=== PATIENT | female | born 1950 | race American Indian/Alaskan Native ===

== ENCOUNTER 2022-01-01 09:37 | Emergency (ER) | payer OTHER ==
--- NOTE | 2022-01-01 13:57 | XRay Report ---
RIGHT KNEE 2 VIEW(S) INDICATION / CLINICAL INFORMATION: fall COMPARISON: None available. FINDINGS: BONES / JOINT(S): No acute fracture or subluxation. No significant arthritis. SOFT TISSUES: No significant abnormality. ADDITIONAL FINDINGS: None. Signer Name: Jamarcus Avina DO Signed: 01/01/2022 1:53 PM Workstation Name: [email or web address]
[2022-01-01] MEDS ORDERED: KETOROLAC 30 MG/1 ML INJ IM ONE (14:18)
--- NOTE | 2022-01-01 14:18 | Emergency Department Report ---
ED Extremity Problem HPI - General Chief complaint: Extremity Injury, Lower Stated complaint: RT LOW LEG PAIN FALL Source: patient, EMS Mode of arrival: Stretcher Limitations: Language Barrier - History of Present Illness Initial comments: 71-year-old female presents to the ED complaining of right shoulder ,right leg and right knee pain x4-hour. She states that she was working at [employer] when she was slipped and fell over a pallet. She is able to ambulate without difficulty. Patient has no obvious deformity. no distracting injury. no edema noted. Patient is able to move all extremity without difficulty. Patient states pain to her right knee is a 8 out of 10. Patient is alert and oriented x3. No acute distress noted. No ill appearance noted. MD Complaint: extremity pain -: This morning Location: right History of Same: No Severity scale (0 -10): 8 Quality: aching Consistency: constant Improves with: nothing - Related Data Previous Rx's Medication Instructions Recorded Last Taken Type Cyclobenzaprine HCl [Flexeril 5 MG 5 mg PO TID 15 Days #30 tab 01/01/22 Unknown Rx TAB] Meloxicam [Mobic] 7.5 mg PO QDAY 15 Days #30 tablet 01/01/22 Unknown Rx Allergies Allergy/AdvReac Type Severity Reaction Status Date / Time No Known Allergies Allergy Verified 01/01/22 09:42 ED Review of Systems ROS: Stated complaint: RT LOW LEG PAIN FALL Other details as noted in HPI Constitutional: denies: chills, fever Eyes: denies: eye pain, eye discharge, vision change ENT: denies: ear pain, throat pain Respiratory: denies: cough, shortness of breath, wheezing Cardiovascular: denies: chest pain, palpitations Endocrine: no symptoms reported Gastrointestinal: denies: abdominal pain, nausea, diarrhea Genitourinary: denies: urgency, dysuria, discharge Musculoskeletal: arthralgia. denies: back pain, joint swelling Skin: denies: rash, lesions Neurological: denies: headache, weakness, paresthesias Psychiatric: denies: anxiety, depression Hematological/Lymphatic: denies: easy bleeding, easy bruising ED Past Medical Hx - Medications Home Medications: Home Medications Medication Instructions Recorded Confirmed Last Taken Type Cyclobenzaprine HCl [Flexeril 5 MG 5 mg PO TID 15 Days #30 tab 01/01/22 Unknown Rx TAB] Meloxicam [Mobic] 7.5 mg PO QDAY 15 Days #30 tablet 01/01/22 Unknown Rx ED Physical Exam - General Limitations: Language Barrier General appearance: alert, in no apparent distress - Head Head exam: Present: atraumatic, normocephalic - Eye Eye exam: Present: normal appearance - ENT ENT exam: Present: mucous membranes moist - Neck Neck exam: Present: normal inspection - Respiratory Respiratory exam: Present: normal lung sounds bilaterally. Absent: respiratory distress - Cardiovascular Cardiovascular Exam: Present: regular rate, normal rhythm. Absent: systolic murmur, diastolic murmur, rubs, gallop - GI/Abdominal GI/Abdominal exam: Present: soft, normal bowel sounds - Extremities Exam Extremities exam: Present: normal inspection - Back Exam Back exam: Present: normal inspection - Neurological Exam Neurological exam: Present: alert, oriented X3 - Psychiatric Psychiatric exam: Present: normal affect, normal mood - Skin Skin exam: Present: warm, dry, intact, normal color. Absent: rash ED Course Vital Signs 01/01/22 01/01/22 09:40 14:47 Temperature 98.6 F 98.5 F Pulse Rate 87 88 Respiratory 14 16 Rate Blood Pressure 154/95 148/86 [Left] O2 Sat by Pulse 100 100 Oximetry ED Medical Decision Making - Radiology Data [facility] [address] [place] [address] XRay Report Signed Patient: MIHAI HOUSE MR#: [id number] 9 : 1950 Acct:[id number] Age/Sex: 71 / F ADM Date: 01/01/22 Loc: ED Attending Dr: Ordering Physician: CLAU TAN Date of Service: 01/01/22 Procedure(s): XR knee 1-2V RT Accession Number(s): [id number] cc: CLAU TAN Fluoro Time In Minutes: RIGHT KNEE 2 VIEW(S) INDICATION / CLINICAL INFORMATION: fall COMPARISON: None available. FINDINGS: BONES / JOINT(S): No acute fracture or subluxation. No significant arthritis. SOFT TISSUES: No significant abnormality. ADDITIONAL FINDINGS: None. Signer Name: Jamarcus Avina DO Signed: 01/01/2022 1:53 PM Workstation Name: [id number] Transcribed By: JAILYN Dictated By: JAMARCUS AVINA DO Electronically Authenticated By: JAMARCUS AVINA DO Signed Date/Time: 01/01/221352 DD/ 52 - Medical Decision Making 71-year-old female presents to the ED complaining of right shoulder, right leg and right knee pain x4-hour. She states that she was working at [employer] when she was slipped and fell over a pallet. She is able to ambulate without difficulty. Patient has no obvious deformity. no distracting injury. no edema noted. Patient is able to move all extremity without difficulty. Patient states pain to her right knee is a 8 out of 10. Patient is alert and oriented x3. No acute distress noted. No ill appearance noted. Physical examination is unremarkable Rechecked the patient is resting quietly , comfortable and feeling better. I discussed the results of diagnostic study, my clinical impression and the plan for further treatment with the patient. Patient agrees with plan and discharge at this present time. All question addressed. I have given the patient instruction regarding a diagnosis ,expectation ,follow- up and return precaution. I explained to the patient that emergent condition may arise and to return to the ED for new worsen and any new persisting condition. I have explained the importance of following up with the primary care physician or referral physician listed below has instructed. The patient verbalized understanding of discharge instruction. Critical care attestation.: If time is entered above; I have spent that time in minutes in the direct care of this critically ill patient, excluding procedure time. ED Disposition Clinical Impression: Right leg pain Right shoulder pain Qualifiers: Chronicity: acute Qualified Code(s): M25.511 - Pain in right shoulder Right knee pain Qualifiers: Chronicity: acute Qualified Code(s): M25.561 - Pain in right knee Fall Qualifiers: Encounter type: initial encounter Qualified Code(s): W19.XXXA - Unspecified fall, initial encounter Disposition: HOME / SELF CARE / HOMELESS Is pt being admited?: No Does the pt Need Aspirin: No Condition: Stable Instructions: Shoulder Pain, [id number] Additional Instructions: return to ed for any worsening symptom Follow-up with the Workmen's Comp. doctor recommended by your job Prescriptions: Cyclobenzaprine HCl [Flexeril 5 MG TAB] 5 mg PO TID 15 Days #30 tab Meloxicam [Mobic] 7.5 mg PO QDAY 15 Days #30 tablet Referrals: PRIMARY CARE, [Primary Care Provider] - 3-5 Days [facility] [Provider Group] - 3-5 Days Forms: Work/School Release Form(ED) Time of Disposition: 14:29
[2022-01-01 14:48] VITALS: BP 148/86
== END 2022-01-01 14:48 | disposition home or self-care (01) ==
LOC: ED 09:37
DX: M25.511 Pain in right shoulder (principal); M25.561 Pain in right knee; W18.39XA Other fall on same level, initial encounter; Y93.89 Activity, other specified; Y92.89 Other specified places as the place of occurrence of the external cause; Y99.8 Other external cause status
CPT/HCPCS: 73560; 96372; 99283; J1885